=== PATIENT | female | born 1995 | race Caucasian/White ===

== ENCOUNTER 2017-11-23 14:33 | Emergency (ER) | payer MEDICAID ==
[~2017-11-23] VITALS: Ht 170.2 cm; Wt 127.0 kg
[2017-11-23 14:37] VITALS: BP 133/72
--- NOTE | 2017-11-23 14:43 | NUR ---
PT TAKEN TO BED 7 AT THIS TIME. ABULATORY W/ STEADY GAIT. REPORT GIVEN TO ELY ALDANA
--- NOTE | 2017-11-23 14:45 | NUR ---
22/F BIB MOTHER C/O EPIGASTRIC PAIN X THIS MORNING. SHE SAYS SHE HAS BEEN HAVING THIS PAIN ON AND OFF. DENIES N/V/D; SKIN IS PINK/WARM/DRY; AAOX4 WITH EVEN AND STEADY GAIT; LUNGS CLEAR BL; HR EVEN AND REGULAR; PATIENT STATES PAIN OF 7/10 AT THIS TIME; VSS; PATIENT POSITIONED FOR COMFORT; HOB ELEVATED; BEDRAILS UP X2; BED DOWN. ER MD MADE AWARE OF PT STATUS.
--- NOTE | 2017-11-23 15:04 | NUR ---
Dr. Sanabria evaluating patient at bedside.
[2017-11-23] MEDS ORDERED: ALUMINUM HYD/MAG/SIMETHICONE 30 ML UDC PO ONE ×2 (15:10→16:10)
[2017-11-23] MEDS ORDERED: LIDOCAINE VISCOUS 2% 20 ML UDC PO ONE ×2 (15:10→16:10)
[2017-11-23] MEDS ORDERED: DICYCLOMINE HCL LIQUID 10 MG/5 ML UDC PO ONE ×2 (15:10→16:10)
--- NOTE | 2017-11-23 15:24 | NUR ---
N/V AT THIS TIME. NOTIFIED DR KOCH.
[2017-11-23] MEDS ORDERED: ONDANSETRON 4 MG/2 ML VIAL IM ONE (15:25)
--- NOTE | 2017-11-23 16:08 | NUR ---
Patient appears to be resting comfortably in bed. Vital Signs within normal limits. Respirations even and unlabored.WILL CONTINUE TO MONITOR.
[2017-11-23] MEDS ORDERED: PANTOPRAZOLE 40 MG TABEC PO ONE (16:10)
--- NOTE | 2017-11-23 16:50 | NUR ---
Dr. Sanabria reevaluating patient at bedside.
[2017-11-23 16:56] VITALS: BP 108/71
--- NOTE | 2017-11-23 16:56 | NUR ---
Patient discharged with v/s stable. Written and verbal after care instructions given and explained. Patient alert, oriented and verbalized understanding of instructions. Ambulatory with steady gait. All questions addressed prior to discharge. ID band removed. Patient advised to follow up with PMD. Rx of maalox& omeprazole given. Patient educated on indication of medication including possible reaction and side effects. Opportunity to ask questions provided and answered.
== END 2017-11-23 16:56 | disposition home or self-care (01) ==
LOC: MED 14:33
DX: K29.70 Gastritis, unspecified, without bleeding (principal)
CPT/HCPCS: 81002; 81025; 96372; 99284; J2405; 99283